=== PATIENT | male | born 1970 | race Caucasian/White ===

== ENCOUNTER 2019-04-07 10:00 | Outpatient (CLI) | payer BC, OTHER ==
[~2019-04-07] VITALS: Ht 177.8 cm; Wt 133.2 kg
[2019-04-07 10:28] VITALS: BP 141/98; PULSE 81; TEMP 98.1
[2019-04-07 10:29] VITALS: BP 141/98; PULSE 81; TEMP 98.1
[2019-04-07] MEDS ORDERED: NAPROSYN500 MG PO (10:34)
[2019-04-07] MEDS ORDERED: PRILOSEC 20MG20 MG PO (10:35)
[2019-04-07] MEDS ORDERED: WELLBUTRIN SR150 M1 PO (10:36)
[2019-04-07] MEDS ORDERED: VITAMIN D31000 I1 PO (10:37)
[2019-04-07] MEDS ORDERED: LEVITRA20 MG PO (10:40)
[2019-04-07] MEDS ORDERED: HCTZ 25MG TAB25 MG PO (10:40)
[2019-04-07] MEDS ORDERED: GLUCOPHAGE500 MG/TAB PO (10:41)
[2019-04-07 11:30] VITALS: BP 143/79; PULSE 86; TEMP 98.1
--- NOTE | 2019-04-07 11:35 | NUR ---
Discharge instructions given. Transferred to private car by michaela
== END 2019-04-07 11:30 | disposition home or self-care (01) ==
LOC: COL.CAR 10:00
DX: I47.1 Supraventricular tachycardia (principal); G47.33 Obstructive sleep apnea (adult) (pediatric); I10 Essential (primary) hypertension
CPT/HCPCS: 27776; C1764